=== PATIENT | female | born 1995 | race Caucasian/White ===

== ENCOUNTER 2016-11-02 01:28 | Emergency (ER) | payer BC ==
[2016-11-02 01:40] VITALS: BP 117/82; PULSE 60; RESP 16; TEMP 98.2; O2SAT 98
--- NOTE | 2016-11-02 02:06 | EDPHY ---
H & P Stated Complaint: says was noreen jumping into water, hit water oddly - onging collier /nausea since Time Seen by Provider: 11/02/16 01:54 HPI/ROS: Chief Complaint: Headache, nausea HPI: 21-year-old female was [place] park this [place] diving into a pool 20 feet. She jumped in feet 1st but kind of fell backwards on the landing. Is not sure if she hit her head but came up with heard hurting and started having headache which showed developed over the course of the next hour so. Feels like she is wearing a hat that is too tight and some aching in her neck. At worst is 8 on 10. She has since taken Advil is not on a 5 on 10. She has had some nausea but no vomiting. She did not have a loss of consciousness. Patient states that symptoms have persisted but have not been worsening over the course of the last 2 hours. No prior history of head injuries. No numbness or weakness. No fevers or chills. ROS: 10 point Review of Systems is negative except as noted in the HPI. PMH: Hypothyroidism, ADD, anxiety Medications: Synthroid, Concerta, Prozac Allergies: No known drug allergies Social History: No smoking, occasional alcohol, no recreational drug use Family History: non-contributory Physical Exam: Gen: Awake, Alert, No Distress HEENT: Patient has some tenderness in the bilateral temples and along the scalp musculature reproducing her presenting complaint. Nose: no rhinorrhea Eyes: PERRLA, EOMI Mouth: Moist mucosa Neck: Supple, no JVD, no midline tenderness, mild bilateral paraspinal muscle tenderness Chest: nontender, lungs clear to auscultation Heart: S1, S2 normal, no murmur Abd: Soft, non-tender, no guarding Back: no CVA tenderness, no midline tenderness Ext: no edema, non-tender Skin: no rash Neuro: CN II-XII intact, Sensation grossly intact, Strength 5/5 in bilateral upper and lower extremities - Medical/Surgical History Hx Asthma: Yes Hx Chronic Respiratory Disease: No Hx Diabetes: No Hx Cardiac Disease: No Hx Renal Disease: No Hx Cirrhosis: No Hx Alcoholism: No Hx HIV/AIDS: No Hx Splenectomy or Spleen Trauma: No Other PMH: hypothyroid, ADD, anxiety, 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 PSHx : thyroidectomy, T&A - Social History Smoking Status: Never smoked Constitutional: Initial Vital Signs Temperature (C) 36.8 C 11/02/16 01:36 Heart Rate 60 11/02/16 01:36 Respiratory Rate 16 11/02/16 01:36 Blood Pressure 117/82 H 11/02/16 01:36 O2 Sat (%) 98 11/02/16 01:36 O2 Delivery Mode Room Air Allergies/Adverse Reactions: No Known Allergies Allergy (Verified 11/02/16 01:40) Home Medications: Medication Instructions Recorded Concerta 11/16/14 LEVOTHYROXINE SODIUM 11/16/14 Prozac 10 MG (RX) 11/16/14 Medical Decision Making ED Course/Re-evaluation: Patient has a tension-type headache after jumping into cold water park today. She denied head 1st. She denied hyperextended her neck. She had no loss of consciousness. She did not have a headache immediately after the injury. Given history and examination I think the likelihood of significant intracranial hemorrhage is extremely low. We have discussed the advantages and disadvantages of had scan at this time. New not think that the radiation from a CT scan is indicated at this time. She has been cautioned her to the emergency depart for increasing headache, worsening nausea vomiting, confusion, or any other concerns. Otherwise [facility] for further evaluation. Departure - Departure Disposition: Home, Routine, Self-Care Clinical Impression: Tension headache Condition: Good Instructions: Tension Headache (ED) Additional Instructions: Return to the emergency depart for increasing headache, worsening nausea or vomiting, vision changes, lightheadedness or fainting, or any other concerns. [facility]3 days for re-evaluation. Referrals: [facility] [Other] - As per Instructions [facility] STUDENT ,. [Clinic] - As per Instructions
== END 2016-11-02 02:14 | disposition home or self-care (01) ==
DX: G44.209 Tension-type headache, unspecified, not intractable (principal); J45.909 Unspecified asthma, uncomplicated; W16.812A Jumping or diving into other water striking water surface causing other injury, initial encounter; Y93.39 Activity, other involving climbing, rappelling and jumping off

== ENCOUNTER 2016-11-19 17:25 | Emergency (ER) | payer BC ==
[2016-11-19 17:33] VITALS: TEMP 98.2
--- NOTE | 2016-11-19 17:47 | CPEKG ---
Heart Rate: 96 RR Interval: 625 P-R Interval: 140 QRSD Interval: 96 QT Interval: 356 QTC Interval: 450 P Revillo: 79 QRS Revillo: 88 T Wave Revillo: 15 EKG Severity - NORMAL ECG - EKG Impression: SINUS RHYTHM Electronically Signed By: Tricia Hines 19-Nov-2016 21:04:20
--- NOTE | 2016-11-19 18:14 | EDPHY ---
H & P Stated Complaint: SOB/CP WHILE RUNNING/HX EXERCISE INDUCED ASTHMA BUT NO RELIEF WITH MDI HPI/ROS: CHIEF COMPLAINT: Dyspnea HISTORY OF PRESENT ILLNESS: The patient is a 21-year-old female with history of asthma presenting with dyspnea during exercise. The patient was playing soccer this evening and developed severe shortness of breath. She used her inhaler but found no relief. She stopped exercising and rested but was still unable to catch her breath. She had chest tightness and blurry vision. Her symptoms improved with time and rest and she was able to drive herself to the ED. The patient's dyspnea has resolved, but she feels weak. Patient is currently menstruating. No recent illnesses--no fever or cough. REVIEW OF SYSTEMS: A ten point review of systems was performed and is negative with the exception of the items mentioned in the HPI. Past medical history: Exercise induced asthma. Past surgical history: Denies. Family history: Father with asthma. Social history: [employer] student. Nonsmoker. General Appearance: Alert. Vital signs reviewed. Heart rate 103, blood pressure 122/86, respiratory rate 22 at triage. Eyes: Pupils equal and round, no conjunctival injection, no discharge. Anicteric. ENT, Mouth: Mucous membranes are moist, no oropharyngeal erythema or edema. Neck: No lymphadenopathy, supple. Respiratory: Lungs are clear to auscultation; no wheezes, rales, or rhonchi. Cardiovascular: Regular rate and rhythm; no murmur, rub, or gallop. Skin: Warm and dry, no rashes on exposed skin, normal color. Back: Nontender to palpation over the thoracolumbar spine. Extremities: No lower extremity edema, mild left calf tenderness. Neurological: Alert and oriented. Moving all four extremities easily and equally. Psychiatric: Normal affect. 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 PSHx : thyroidectomy, T&A - Social History Smoking Status: Never smoked Constitutional: Initial Vital Signs Temperature (C) 36.8 C 08/23/17 17:31 Heart Rate 103 H 11/19/16 17:31 Respiratory Rate 22 H 11/19/16 17:31 Blood Pressure 122/86 H 11/19/16 17:31 O2 Sat (%) 97 11/19/16 17:31 O2 Delivery Mode Room Air Allergies/Adverse Reactions: No Known Allergies Allergy (Verified 11/19/16 17:30) Home Medications: Medication Instructions Recorded Concerta 11/16/14 LEVOTHYROXINE SODIUM 11/16/14 Prozac 10 MG (RX) 11/16/14 Albuterol 11/19/16 Medical Decision Making - Diagnostics Imaging: I viewed and interpreted images myself ED Course/Re-evaluation: Patient with history of asthma presents with dyspnea during exercise. Plan to check lab work including BMP and D-dimer. Chest x-ray ordered. Glucose is normal. Creatinine is slightly elevated at 1.2. D-dimer is normal. Chest x-ray is normal. 7:20 p.m.: I discussed findings with the patient. She takes pre-workout supplements that most likely contain creatinine. I advised patient not to use supplements. Patient is comfortable with going home. She has an inhaler and I am recommending that she use it on an as needed basis. She has a diagnosis of exercise induced asthma. She is not actively wheezing at the time of my evaluation. She was initially mildly tachypneic but all of her vital signs normalized during his stay in the emergency department. I have not found evidence of pneumonia or bronchitis. Based on Well's score she is low risk for PE in her D-dimer is negative, I do not recommend further evaluation for PE. There is no evidence of pneumonia or pneumothorax on chest x -ray. - Data Points Laboratory Results: Laboratory Results 11/19/16 17:44 Departure - Departure Disposition: Home, Routine, Self-Care Clinical Impression: Elevated creatine kinase Dyspnea Qualifiers: Dyspnea type: dyspnea on exertion Qualified Code(s): R06.09 - Other forms of dyspnea Condition: Good Instructions: Dyspnea (ED) Additional Instructions: I recommend you do not take additional supplements. ' Followup with your primary care physician for reevaluation. Return to the Emergency Department with recurrent symptoms, chest pain, shortness of breath, or worsening concerns. Referrals: [facility] Dominguez,. [Clinic] - As per Instructions Report Scribed for: Tricia Hines Report Scribed by: Nola Santiago Date of Report: 11/19/16 Time of Report: 18:30 Physician Review and Approval Statement: 11/19/16 18:30 Portions of this note were transcribed by the durable medical equipment repairer. I, Dr. Tricia Hines, personally performed the history, physical exam, and medical decision- making; and confirmed the accuracy of the information in the transcribed note.
[2016-11-19 18:42] LABS: ANION GAP 14 mEq/L (8-16); CALCIUM 9.9 mg/dL (8.5-10.4); CARBON DIOXIDE 20 mEq/l (22-31); CHLORIDE 104 mEq/L (97-110); CREATININE 1.2 mg/dL (0.6-1.0); GLOMERULAR FILTRATION RATE 57; GLUCOSE 91 mg/dL (70-100); POTASSIUM 3.3 mEq/L (3.5-5.2); SODIUM 138 mEq/L (134-144)
[2016-11-19 20:07] VITALS: BP 122/74; PULSE 83; RESP 15; O2SAT 98
== END 2016-11-19 20:05 | disposition home or self-care (01) ==
DX: R06.09 Other forms of dyspnea (principal); J45.909 Unspecified asthma, uncomplicated; R74.8 Abnormal levels of other serum enzymes

== ENCOUNTER 2017-09-12 00:24 | Emergency (ER) | payer BC, OTHER ==
--- NOTE | 2017-09-12 00:39 | EDPHY ---
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 PSHx : thyroidectomy, T&A - Social History Smoking Status: Never smoked Time Seen by Provider: 09/12/17 00:30 HPI/ROS: CHIEF COMPLAINT: Accidental Lavender oil ingestion HISTORY OF PRESENT ILLNESS: 22-year-old female otherwise healthy states that approximately 11:45 p.m. she took her usual 2 Unisom tablets, she then went to grab drink of water. She did not realize that she had a small amount of Lavender oil in a glass, being used for aromatherapy, filled the glass with water, took a single drink, swallowed a portion spit up the rest the portion. She called poison Control recommend she come to the ER for evaluation. She has no complaints of pain or discomfort. No abdominal pain, no chest pain, no oropharyngeal irritation, no dyspnea, no chest pain, no palpitations no odynophagia. This was accidental. Denies self-injurious intent. REVIEW OF SYSTEMS: A ten point review of systems was performed and is negative with the exception of the items mentioned in the HPI PAST MEDICAL & SURGICAL HISTORY: No pertinent medical or surgical history SOCIAL HISTORY: Nonsmoker PHYSICAL EXAM (Prior to examination, patient consented to physical exam, hands were washed and my usual and customary physical exam procedures followed) 1) GENERAL: Well-developed, well-nourished, alert and oriented. Appears to be in no acute distress. Smiling, shakes my hand 2) HEAD: Normocephalic, atraumatic 3) HEENT: Pupils equal, round, reactive to light bilaterally. Sclera anicteric. Nasopharynx, oropharynx, clear, no lesions. No irritation. Airway patent 4) NECK: Full range of motion, no meningeal signs. 5) LUNGS: Clear auscultation bilaterally, no wheezes, no rhonchi, no retractions. 6) HEART: Regular rate and rhythm, no murmur, no heave, no gallop. 7) ABDOMEN: No guarding, no rebound, no focal tenderness, negative McBurney's, negative Isaac's, negative Rovsing's, negative peritoneal sign, 8) MUSCULOSKELETAL: Moving all extremities, no focal areas of tenderness, no obvious trauma. No peripheral edema or discoloration. 9) BACK: No CVA tenderness, no midline vertebral tenderness, no fluctuance, no step-off, no obvious trauma, no visual or palpable abnormality. 10) SKIN: No rash, no petechiae. 11) Psychiatric: Patient is oriented X 3, there is no agitation. DIFFERENTIAL DIAGNOSIS: In no particular order include but limited to intentional ingestion, accidental ingestion, caustic ingestion (Harper Lindsay) Constitutional: Initial Vital Signs Temperature (C) 37.0 C 09/12/17 00:27 Heart Rate 76 09/12/17 00:27 Respiratory Rate 18 09/12/17 00:27 Blood Pressure 131/89 H 09/12/17 00:27 O2 Sat (%) 98 09/12/17 00:27 O2 Delivery Mode Room Air Allergies/Adverse Reactions: No Known Allergies Allergy (Verified 09/12/17 00:29) Home Medications: Medication Instructions Recorded Concerta 11/16/14 LEVOTHYROXINE SODIUM 11/16/14 Prozac 10 MG (RX) 11/16/14 Albuterol 11/19/16 Medical Decision Making ED Course/Re-evaluation: Consultation with [facility] poison Control at 1245 a.m. case # [id number]. Poison Control recommends observation in the ER for period of time as Lavender oil may cause DIGITAL STRATEGY SPECIALIST depression. Patient has taken 2, 25 mg Unisom tablets at approximately 11:45 a.m. And she would like to go to sleep. She will be allowed to sleep in the ER. At this time she is not overly somnolent. I suspect that her somnolence secondary to the Unisom tablets. She will be allowed to sleep in the ER and will be discharged home if she remains asymptomatic. (Harper Lindsay Jil) 0300: Patient re-evaluated resting comfortably in no acute distress. She has no complaints. She has not been nauseous she has not been vomiting she has not been excessively sleepy. She is resting comfortably eager for discharge home. I discussed return precautions with her she understands return emergency room if develops any worsening symptoms questions or concerns. (Cruz Jorgensen) Departure - Departure Disposition: Home, Routine, Self-Care Clinical Impression: Drug ingestion, accidental Qualifiers: Encounter type: initial encounter Qualified Code(s): T50.901A - Poisoning by unspecified drugs, medicaments and biological substances, accidental ( unintentional), initial encounter Condition: Good Instructions: Foreign Body Ingestion (ED) Additional Instructions: Return to the ER if you develop abdominal pain, pain with swallowing or any other symptoms that concern you Referrals: [facility] Dominguez,. [Clinic] - 2-3 days, call for appt.
[2017-09-12 03:08] VITALS: BP 116/72
== END 2017-09-12 03:06 | disposition home or self-care (01) ==
DX: T65.891A Toxic effect of other specified substances, accidental (unintentional), initial encounter (principal); J45.909 Unspecified asthma, uncomplicated